=== PATIENT | male | born 1960 | race Caucasian/White ===

== ENCOUNTER → 2017-01-18 | Outpatient (CLI) | payer OTHER ==
[2011-10-18 16:45] VITALS: BP 128/80
[~2017-01-18] MED LIST: CEPHALEXIN500 M2 PO
[2017-01-18 13:02] LABS: D-DIMER 0.35 mg/L FEU (0.15-0.50)
== END ==
LOC: LAB 12:21
PROVIDERS: Family Medicine
DX: L03.116 Cellulitis of left lower limb (principal); R60.0 Localized edema

== ENCOUNTER → 2017-02-02 | Outpatient (CLI) | payer OTHER ==
[~2017-02-02] VITALS: Ht 185.4 cm; Wt 127.3 kg
[~2017-02-02] MED LIST changes: +ADVIL 200MG TA200 MG PO; +MASON NATURAL600 MG PO; +SUPHEDRIN30 MG PO
[2017-02-02 09:21] VITALS: BP 161/95
[2017-02-02 09:41] LABS: ALBUMIN 4.1 g/dL (3.5-5.0); BUN/CREATININE RATIO 20.1 (6.0-26.0); POTASSIUM 4.3 mmol/L (3.6-5.0); TOTAL BILIRUBIN 0.9 mg/dL (0.2-1.3); TOTAL PROTEIN 7.3 g/dL (6.3-8.2)
[2017-02-02 09:45] LABS: CKMB ISOENZYME 2.2 ng/mL (0.6-3.5)
[2017-02-02 09:54] LABS: TROPONIN-I < 0.03 ng/mL (0.00-0.06)
== END ==
LOC: AMSURD 09:10
PROVIDERS: Nurse Practitioner Family
DX: R60.0 Localized edema (principal); R06.02 Shortness of breath

== ENCOUNTER → 2017-04-08 | Outpatient (CLI) | payer OTHER ==
[2017-02-02 09:21] VITALS: BP 161/95
[2017-04-08 12:00] LABS: URINE APPEARANCE CLEAR; URINE BILIRUBIN NEGATIVE (NEGATIVE); URINE BLOOD 50 ery/uL (NEGATIVE); URINE COLOR YELLOW; URINE GLUCOSE NEGATIVE (NEGATIVE); URINE KETONE NEGATIVE (NEGATIVE); URINE LEUKOCYTE ESTERASE NEGATIVE (NEGATIVE); URINE NITRATE NEGATIVE (NEGATIVE); URINE PROTEIN(semi-quant) NEGATIVE (NEGATIVE); URINE UROBILINOGEN NORMAL (NORMAL); URINE WBC 0-1 /hpf (0-3)
== END ==
LOC: RAD 10:47
PROVIDERS: Family Medicine
DX: M54.9 Dorsalgia, unspecified (principal); R30.0 Dysuria; N50.89 Other specified disorders of the male genital organs

== ENCOUNTER → 2018-04-25 | Outpatient (CLI) | payer OTHER ==
[2017-02-02 09:21] VITALS: BP 161/95
[2018-04-25 18:21] LABS: URINE APPEARANCE HAZY; URINE BILIRUBIN NEGATIVE (NEGATIVE); URINE BLOOD 50 ery/uL (NEGATIVE); URINE COLOR YELLOW; URINE GLUCOSE NEGATIVE (NEGATIVE); URINE KETONE NEGATIVE (NEGATIVE); URINE LEUKOCYTE ESTERASE NEGATIVE (NEGATIVE); URINE NITRATE NEGATIVE (NEGATIVE); URINE PROTEIN(semi-quant) 1+ mg/dL (NEGATIVE); URINE UROBILINOGEN NORMAL (NORMAL)
[2018-04-25 18:22] LABS: URINE WBC 0-1 /hpf (0-3)
== END ==
LOC: LAB 17:27
PROVIDERS: Family Medicine
DX: R31.9 Hematuria, unspecified (principal); R39.15 Urgency of urination

== ENCOUNTER → 2018-04-27 | Outpatient (CLI) | payer OTHER ==
[2017-02-02 09:21] VITALS: BP 161/95
== END ==
LOC: LAB 14:50
DX: R31.9 Hematuria, unspecified (principal); R39.15 Urgency of urination; Z72.0 Tobacco use

== ENCOUNTER → 2018-04-28 | Outpatient (CLI) | payer OTHER ==
[2017-02-02 09:21] VITALS: BP 161/95
== END ==
LOC: RAD 09:29
DX: N28.9 Disorder of kidney and ureter, unspecified (principal); R31.9 Hematuria, unspecified; N50.812 Left testicular pain

== ENCOUNTER → 2018-05-16 | Outpatient (CLI) | payer OTHER ==
[2017-02-02 09:21] VITALS: BP 161/95
== END ==
LOC: RAD 10:36
DX: N20.1 Calculus of ureter (principal); K76.0 Fatty (change of) liver, not elsewhere classified; R93.5 Abnormal findings on diagnostic imaging of other abdominal regions, including retroperitoneum
CPT/HCPCS: Q9967

== ENCOUNTER → 2023-06-04 | Outpatient (CLI) | payer OTHER | LOC: RAD 11:47 | DX: M16.0 Bilateral primary osteoarthritis of hip (principal) ==